=== PATIENT | male | born 2000 | race African-American/Black ===

== ENCOUNTER 2020-03-25 13:55 | Emergency (ER) | payer OTHER ==
[~2020-03-25] VITALS: Ht 165.1 cm; Wt 70.0 kg
[2020-03-25] MEDS ORDERED: IBUPROFEN 600MG TABLET PO ONE (14:15)
[2020-03-25] MEDS ORDERED: BACITRACIN ZINC OINT UDPKT TOP ONE (14:15)
[2020-03-25 14:39] VITALS: BP 140/82
== END 2020-03-25 14:42 | disposition home or self-care (01) ==
LOC: ER 14:09
DX: S51.852A Open bite of left forearm, initial encounter (principal); J45.909 Unspecified asthma, uncomplicated; Z90.49 Acquired absence of other specified parts of digestive tract; Y04.1XXA Assault by human bite, initial encounter; Y93.89 Activity, other specified; Y92.018 Other place in single-family (private) house as the place of occurrence of the external cause
CPT/HCPCS: 99283